=== PATIENT | female | born 1990 | race Caucasian/White ===

== ENCOUNTER 2016-08-05 08:09 | Day surgery (SDC) | payer OTHER ==
[2016-07-31 14:21] VITALS: BMI 21.2
[~2016-08-05 08:09] MED LIST: BUPIVACAINE HCL/PF 0.5% (5MG/ML) 10 ML VIAL IJ ONE
[2016-08-05] MEDS ORDERED: DESFLURANE GAS 240 ML BOTTLE IH ONE (10:42)
[2016-08-05] MEDS ORDERED: INDOCYANINE GREEN 25 MG/10 ML VIAL IVPUSH ONE (10:42)
[2016-08-05] MEDS ORDERED: oxyCODONE HCL 5 MG TABLET PO PRN (10:44)
[2016-08-05] MEDS ORDERED: ONDANSETRON 4 MG/2 ML VIAL IVPUSH PRN (10:44)
[2016-08-05] MEDS ORDERED: LACTATED RINGERS SOLUTION 1,000 ML IV SCH (10:45)
--- NOTE | 2016-08-05 10:46 | HP ---
History & Physical Update - History History: No Change - Physical Physical: No Change - Assessment Assessment: No Change - Plan Plan: No Change
[2016-08-05] MEDS ORDERED: SODIUM CHLORIDE 0.9% P/F 10 ML VIAL IJ ONE (10:49)
[2016-08-05] MEDS ORDERED: KETOROLAC TROMETHAMINE 30 MG/1 ML VIAL ONE (10:49)
[2016-08-05] MEDS ORDERED: DEXAMETHASONE SOD PHOSPHATE 4 MG/1 ML VIAL ONE (10:49)
[2016-08-05] MEDS ORDERED: MIDAZOLAM HCL 2 MG/2 ML SINGLE DOSE VIAL ONE (10:49)
[2016-08-05] MEDS ORDERED: ROCURONIUM BROMIDE 50 MG/5 ML VIAL ONE (10:49)
[2016-08-05] MEDS ORDERED: ceFAZolin SODIUM 1 GM VIAL ONE (10:49)
[2016-08-05] MEDS ORDERED: BUPIVACAINE HCL/PF 0.5% (5MG/ML) 10 ML VIAL ONE (10:59)
[2016-08-05] MEDS ORDERED: ceFAZolin SODIUM 1 GM VIAL IVPB ONE (11:22)
[2016-08-05] MEDS ORDERED: BUPIVACAINE HCL/PF 0.5% (5MG/ML) 10 ML VIAL IJ ONE ×2 (11:42)
[2016-08-05] MEDS ORDERED: GLYCOPYRROLATE 0.2 MG/1 ML VIAL ONE (12:27)
[2016-08-05] MEDS ORDERED: NEOSTIGMINE METHYLSULFATE 0.5 MG/ML - 10 ML MDV ONE (12:28)
--- NOTE | 2016-08-05 12:55 | OP ---
Operative Note - Note: Operative Date: 08/05/16 Pre-Operative Diagnosis: chronic cholecystitis, cholelithiasis, bilary colic Operation: robotic laparoscopic cholecystectomy Post-Operative Diagnosis: Same as Pre-op Surgeon: Bridger Johns Pediatric Clinical Dietician: Constanza Ramos Anesthesiologist/KEYSEATING MACHINE SET UP OPERATOR: Laurent Chavez Jr. Anesthesia: General Specimens Removed: gallbladder Estimated Blood Loss (mls): 20 Fluid Volume Replaced (mls): 1,000 Operative Report Dictated: Yes
--- NOTE | 2016-08-05 12:56 | SURG ---
Surgery Wireline Field Operator Note Wireline Field Operator: Constanza Ramos PA-C Date of Service: 08/05/16 Diagnosis: chronic cholecystitis, cholelithiasis, bilary colic Procedure: robotic laparoscopic cholecystectomy I was present for the entirety of the operative procedure. For further detail, please refer to operative report. Visit type - Case Type Case Type: Scheduled Admission - New patient This patient is new to me today: Yes Date on this admission: 08/05/16
[2016-08-05 14:57] VITALS: TEMP 98.5
[2016-08-05 17:48] VITALS: BP 90/50; PULSE 100
--- NOTE | 2016-08-06 09:14 | OP ---
DATE OF OPERATION: 08/05/2016 PROCEDURE: Robotically assisted laparoscopic cholecystectomy. PREOPERATIVE DIAGNOSIS: Chronic cholecystitis with cholelithiasis. POSTOPERATIVE DIAGNOSIS: Chronic cholecystitis with cholelithiasis. SURGEON: Bridger Johns MD FASHION MERCHANDISER: SUNSHINE Pretty ANESTHESIA: General endotracheal. FINDINGS ON PROCEDURE: This is a 26-year-old female who presents with chronic right upper quadrant pain radiating to the back following . Preoperative ultrasound revealed gallbladder with multiple stones and a normal-sized common duct. So, patient was advised elective cholecystectomy, and consent was obtained after discussing the risks, benefits, and alternatives of the procedure. DESCRIPTION OF PROCEDURE: Patient was brought to the operating room and placed in supine position. General endotracheal anesthesia was administered. The abdomen was prepped and draped in the usual sterile fashion. Using 0.5% Marcaine, local anesthesia was administered to the proposed incision sites for postoperative analgesia. The peritoneal cavity was entered using an 8-mm incision over the umbilicus using the Veress needle technique. Pneumoperitoneum was established. An 8-mm port was then inserted through the umbilical incision followed by insertion of the 3D 30-degree laparoscope. The peritoneal cavity was carefully inspected and was noted to be free of inadvertent injury. The patient was then placed in steep reverse Trendelenburg [id number] position. Two 8-mm ports were inserted to the right of the umbilicus 7 mm away from each other in a straight line under direct vision. Another 8-mm port was inserted at the left upper quadrant 7 mm away from the umbilicus and 1 fingerbreadth above. The target organ was then set and the robotic arms were docked. The EndoWrist grasper was inserted to the right lateral-most port, and fenestrated bipolar forceps was inserted in the midclavicular port, and the EndoWrist hook dissector connected to monopolar cautery was inserted at the left upper quadrant port. The undersigned then scrubbed out to commence the consult part of the procedure. The gallbladder was grasped at the fundus by the grasper and retracted anterior-superiorly exposing the infundibulum. The infundibulum was grasped by the fenestrated bipolar and grasped inferolaterally to expose the triangle of Calot. Using the Firefly technology, the common bile duct was visualized as a color green as well as the cystic duct, and turning to the gallbladder. The visceral peritoneum covering the triangle was scored using the hook dissector towards the gallbladder bed on each side of the area. This then exposed the cystic duct and cystic artery, which were carefully skeletonized using the EndoWrist hook dissector. The window was made behind the cystic artery to establish the critical view of safety. The cystic duct was clipped using the Hem-o-Sarah Clips at 3 points as well as 1 clip applied to the cystic artery. The cystic duct was transected leaving 2 Hem-o-Sarah Clips at the cystic duct stump, while the cystic artery was cauterized with the bipolar forceps distally, then transected. The gallbladder was then resected from its bed in antegrade fashion using the EndoWrist hook dissector connected to monopolar cautery. After this was completed, the gallbladder was placed in an Endobag and extracted via the left upper quadrant port after crushing the multiple stones. The gallbladder bed was carefully inspected and was noted to be free of active bleeding, and the Hem-O-Sarah Clips were noted to be intact. The robotic arms were undocked, the pneumoperitoneum was evacuated, and the ports were removed. The wounds were closed with subcuticular Biosyn 4-0 sutures reinforced with Dermabond. The patient was successfully extubated and transferred to the post-anesthesia care unit in satisfactory condition. ESTIMATED BLOOD LOSS: About 3 mL. WOUND CLASS: Clean-contaminated. The patient received 1 g of Ancef prior to the start of the procedure. Saul [id number]
--- NOTE | 2016-08-06 15:09 | PATH ---
Surgical Pathology Report Patient Name: WILL SHANKAR [facility]. Rec. #: [id number] /Age/Gender: 1990 (Age: 26) / F Account: [id number] Location: U SURGICAL Taken: 08/05/2016 Received: 08/05/2016 Reported: 08/06/2016 Physicians: Bridger Johns M.D. Specimen(s) Received GALLBLADDER Clinical History Chronic cholecystitis Final Diagnosis GALLBLADDER, CHOLECYSTECTOMY: CHRONIC CHOLECYSTITIS AND CHOLELITHIASIS. Electronically Signed Rudolph Blackmon M.D. Gross Description Received in formalin, labeled "gallbladder" is a 6.2 x 2.0 x 1.8 cm gallbladder with a 0.2 cm in length portion of cystic duct attached. There is a 0.4 cm in greatest dimension possible periductal lymph node present. The outer surface is east-pink with a focal defect and varies from smooth to shaggy. The lumen contains yellow, sludge-like bile as well as numerous yellow, irregular to fragmented choleliths ranging from 0.1-0.5 cm in greatest dimension. The mucosa is east east-red and eroded. The wall of the gallbladder measures 0.1 cm in thickness. Safety Equipment Tester sections are submitted in one cassette. 08/05/201608/05/2016
== END 2016-08-05 17:30 | disposition home or self-care (01) ==
LOC: JASU-SURG 08:09
PROVIDERS: ATTEND Surgery
PROC: 8E0W4CZ Robotic Assisted Procedure of Trunk Region, Percutaneous Endoscopic Approach (ICD-10-PCS; 2016-08-05)
PROC: 0FT44ZZ Resection of Gallbladder, Percutaneous Endoscopic Approach (ICD-10-PCS; principal; 2016-08-05 10:00)
DX: K80.10 Calculus of gallbladder with chronic cholecystitis without obstruction (principal)
CPT/HCPCS: 47562; S2900; 84703; 88304-TC; 94760